=== PATIENT | female | born 1975 ===

== ENCOUNTER 2018-07-20 06:25 | Emergency (ER) | payer MEDICAID, OTHER ==
--- NOTE | 2018-07-20 08:04 | ED PDOC ---
HPI: Abdomen Time Seen by Provider: 07/20/18 07:44 Chief Complaint (Nursing): Abdominal Pain Chief Complaint (Provider): Abdominal Pain History Per: Patient History/Exam Limitations: no limitations Onset/Duration Of Symptoms: Days (1) Location Of Pain/Discomfort: Suprapubic Quality Of Discomfort: Cramping Associated Symptoms: Other (Vaginal bleeding) Additional Complaint(s): 42 years old female presents to the ED for evaluation of vaginal bleeding associated with lower cramping abdominal pain onset last night. Patient is Ab1. PMD: non provided Past Medical History Reviewed: Historical Data, Nursing Documentation, Vital Signs Vital Signs: Last Vital Signs Temp 97.8 F 07/20/18 06:44 Pulse 65 07/20/18 06:44 Resp 17 07/20/18 06:44 BP 99/57 L 07/20/18 06:44 Pulse Ox 99 07/20/18 09:22 - Medical History PMH: No Chronic Diseases Denies: Chronic Kidney Disease - Surgical History Surgical History: (x 2) - Family History Family History: States: Unknown Family Hx - Social History Current smoker - smoking cessation education provided: No Alcohol: None Drugs: Denies - Home Medications Home Medications: Ambulatory Orders Medication Instructions Recorded Ibuprofen [Motrin] 600 mg PO TID 7 Days tab 03/06/16 Polymyxin/Trimethoprim Sulfate 2 drop RIGHTEYE Q6H 7 Days bottle 03/06/16 [Polytrim Ophth Soln] Cyclobenzaprine [Cyclobenzaprine 10 mg PO Q8 PRN #30 tab 05/09/16 HCl] Naproxen [Naprosyn] 500 mg PO BID PRN #30 tab 05/09/16 - Allergies Allergies/Adverse Reactions: Allergies Allergy/AdvReac Type Severity Reaction Status Date / Time No Known Allergies Allergy Verified 05/09/16 12:44 Review of Systems ROS Statement: Except As Marked, All Systems Reviewed And Found Negative Gastrointestinal: Positive for: Abdominal Pain (lower) Genitourinary Female: Positive for: Vaginal Bleeding Physical Exam - Reviewed Nursing Documentation Reviewed: Yes Vital Signs Reviewed: Yes - Physical Exam Appears: Positive for: Non-toxic, No Acute Distress Gastrointestinal/Abdominal: Positive for: Soft, Tenderness (mild lower abdomen bilaterally and suprapubic) Pelvic Exam: Positive for: No Masses, Blood (moderate), Other (Cervix closed). Negative for: Tender Adnexa Extremity: Positive for: Normal ROM. Negative for: Tenderness, Swelling Neurologic/Psych: Positive for: Alert, Oriented (x3) - Laboratory Results Result Diagrams: 07/20/18 08:25 07/20/18 08:25 - ECG O2 Sat by Pulse Oximetry: 99 (RA) Pulse Ox Interpretation: Normal Medical Decision Making Medical Decision Making: Time: 754 Initial Plan: --Labs --Tyelnol 325 mg --OB Transvaginal US 918 Transvaginal US FINDINGS: UTERUS: Measures 10 x 5.8 x 6.8 cm. There is an intrauterine gestational sac in the lower uterine segment region. Gestational sac measures 13 millimeters corresponding with an estimated gestational age of 5 weeks and 3 days. There is a pole of 5-6 millimeters in length without appreciable heart motion. Yolk sac measures 4 millimeters. Imaging findings are consistent with demise and spontaneous . ENDOMETRIUM: Measures 13 millimeters mm in diameter. A gestational sac in the lower uterine segment region. CERVIX: Closed RIGHT OVARY: Measures 3.2 x 1.6 x 1.6 cm. No solid mass. Normal flow. LEFT OVARY: Not visualized. FREE FLUID: No significant free fluid noted. OTHER FINDINGS: None. IMPRESSION: demise with gestational sac in the lower uterine segment region probably representing ongoing . US reveals no heart activity. Will repeat beta HCG 48 hrs to determine if demise. ----- Scribe Attestation: Documented by Rena Umaña, acting as a scribe for Adrian Mitchell MD. Provider Scribe Attestation: All medical record entries made by the Scribe were at my direction and personally dictated by me. I have reviewed the chart and agree that the record accurately reflects my personal performance of the history, physical exam, medical decision making, and the department course for this patient. I have also personally directed, reviewed, and agree with the discharge instructions and disposition. Disposition - Clinical Impression Clinical Impression: Threatened miscarriage - Patient ED Disposition Is Patient to be Admitted: No - Disposition Referrals: [facility] [Outside] [facility] [Outside] Disposition: Routine/Home Disposition Time: 09:50 Condition: FAIR Additional Instructions: Return in 48 Hrs for repeat beta HCG Instructions: Threatened Miscarriage Forms: [facility] (Monegasque)
[2018-07-20 09:05] LABS: EOS % 0.2 % (0.0-4.0); HEMOGLOBIN 13.7 g/dL (12.0-16.0); LYMPH # 0.7 K/uL (1.0-4.3); LYMPH % 4.9 % (20.0-40.0); MEAN CELL VOLUME 84.2 fl (81.0-99.0); MEAN CORPUSCULAR HEMOGLOBIN 28.6 pg (27.0-31.0); MEAN PLATELET VOLUME 9.5 fl (7.2-11.7); MONO # 0.6 K/uL (0.0-0.8); MONO % 3.7 % (0.0-10.0); NEUT # 13.8 K/uL (1.8-7.0); NEUT % 91.2 % (50.0-75.0); NRBC % 0.1 % (0.0-0.0); PLATELET COUNT 194 K/uL (130-400); RBC 4.79 Mil/uL (3.80-5.20); RED CELL DISTRIBUTION WIDTH 13.7 % (11.5-14.5); WHITE BLOOD COUNT 15.1 K/uL (4.8-10.8)
[2018-07-20 09:08] LABS: ALB/GLOB RATIO 1.1 (1.0-2.1); ALBUMIN 3.9 g/dL (3.5-5.0); ALT/SGPT 24 U/L (9-52); AST/SGOT 22 U/L (14-36); BLOOD UREA NITROGEN 15 mg/dl (7-17); CALCIUM 9.1 mg/dL (8.4-10.2); GFR NON-AFRICAN AMERICAN > 60
--- NOTE | 2018-07-20 09:20 | US ---
Date of service: 07/20/2018 HISTORY: r/o ectopic COMPARISON: None available. TECHNIQUE: Real-time transvaginal ultrasound examination of the pelvis was performed. FINDINGS: UTERUS: Measures 10 x 5.8 x 6.8 cm. There is an intrauterine gestational sac in the lower uterine segment region. Gestational sac measures 13 millimeters corresponding with an estimated gestational age of 5 weeks and 3 days. There is a pole of 5-6 millimeters in length without appreciable heart motion. Yolk sac measures 4 millimeters. Imaging findings are consistent with demise and spontaneous . ENDOMETRIUM: Measures 13 millimeters mm in diameter. A gestational sac in the lower uterine segment region. CERVIX: Closed RIGHT OVARY: Measures 3.2 x 1.6 x 1.6 cm. No solid mass. Normal flow. LEFT OVARY: Not visualized. FREE FLUID: No significant free fluid noted. OTHER FINDINGS: None. IMPRESSION: demise with gestational sac in the lower uterine segment region probably representing ongoing .
[2018-07-20 10:20] VITALS: TEMP 98.7
[2018-07-20 10:22] VITALS: BP 103/60; PULSE 76; RESP 16; O2SAT 98
[2018-07-20 10:28] LABS: BANDS 1 % (0-2); LYMPHOCYTE 5 % (20-50); MONOCYTE 3 % (0-10); NEUTROPHIL 91 % (42-75); PLATELET ESTIMATE NORMAL (NORMAL); TOTAL CELLS COUNTED 100
== END 2018-07-20 10:12 | disposition home or self-care (01) ==
LOC: H.ER 06:25
DX: O20.0 Threatened abortion (principal)